=== PATIENT | female | born 1995 | race Caucasian/White ===

== ENCOUNTER 2016-09-04 23:27 | Emergency (ER) | payer OTHER ==
[~2016-09-04] VITALS: Ht 157.5 cm; Wt 68.8 kg
[2016-09-04 23:38] VITALS: TEMP 37; Ht 157.5 cm; Wt 68.8 kg
[2016-09-05] MEDS ORDERED: AMOXICILLIN 250 MG CAP PO ONE
[2016-09-05] MEDS ORDERED: AMOX500C3 PO (00:04)
--- NOTE | 2016-09-05 00:05 | EMERGENCY ROOM VISIT NOTE ---
ED Visit Note First contact with patient: 23:47 CHIEF COMPLAINT: Sore throat 4 days HISTORY OF PRESENT ILLNESS: Patient is an otherwise healthy 21-year-old white female who presents to the emergency department for evaluation of a sore throat over the last 4 days. She notes that it is primarily right sided. She denies any associated upper respiratory symptoms including sinus or nasal congestion, cough or ear pain. She subjectively felt febrile and had chills today but did not record her temperature with a thermometer. She has not used any oral medications for pain, and has tried sipping on herbal tea. She states that she looked in her throat today, and noticed greenish pass on the right tonsil. She notes a foul taste in her mouth and feels like her breath smells. She rates her discomfort a 2/10. No rash. Denies any posterior neck pain or stiffness. No difficulty breathing or swallowing. REVIEW OF SYSTEMS: Review of systems as per HPI. All other systems reviewed were negative. At least 6 systems reviewed. PMH: Electronic medical records are reviewed and summarized as above/below. See Problem List. SOCIAL HISTORY: Patient is a college student from [place]. She lives locally by herself. 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 Denies tobacco or alcohol use. PHYSICAL EXAM: Vital Signs: Reviewed Nurse's notes. Temperature 37.0C orally. MENTAL STATUS: Alert and cooperative. Nontoxic appearing. HEAD: Atraumatic, without temporal or scalp tenderness. EYES: PERRL, EOMI, no discharge or injection. EARS: Tympanic membranes intact, not inflamed, have normal contour. External canals clear. MOUTH: Mucous membranes moist, no lesions, tongue and gums appear normal. THROAT: Examination of the posterior pharynx show a superficial mucoid collection on the right tonsil centrally. Tonsils are otherwise slightly erythematous, no significant swelling. Uvula is midline. No exudates are appreciated on the left tonsil. No trismus. Airway is patent. NECK: Supple, nontender, no lymphadenopathy. SKIN: Normal. NEUROLOGICAL: Sensory and motor functions grossly intact. Normal gait. ED course: The patient was seen and evaluated as above. The area on the right tonsil was probed with a cotton-tipped applicator to see if it was a tonsil or stone which could be popped out of the crypt, however was fairly adherent to the tonsillar surface and therefore further manipulation was not performed. The patient was even to open fully, has no evidence for peritonsillar or retropharyngeal abscess at this time. Patient was encouraged to perform salt water gargles to manually irrigate over the area. She will be placed on amoxicillin. She was educated on the worrisome signs or symptoms for which she should return to the emergency department. She was advised to use Tylenol and ibuprofen for discomfort. She was discharged home in good condition. She was given her first dose of amoxicillin in the emergency department. Problem List Medical Problems: (1) Closed head injury Status: Resolved (2) Concussion Status: Resolved Surgical Problems: (1) H/O wisdom tooth extraction Status: Resolved Current/Historical Medications Scheduled Amoxicillin (Amoxil), 500 MG PO TID Allergies Coded Allergies: No Known Allergies (Unverified , 09/05/16) Vital Signs Date Time Temp Pulse Resp B/P Pulse Ox O2 Delivery O2 Flow Rate FiO2 09/05/16 00:07 98 18 129/67 98 Room Air 09/04/16 23:40 98 Room Air 09/04/16 23:38 37.0 82 16 128/75 97 Room Air Medications Administered Medications (Trade) Dose Ordered Sig/Gonzalez Route Start Time Stop Time Status Last Admin Dose Admin Amoxicillin (Amoxil Cap) 500 mg NOW ONCE PO 09/05/16 00:00 09/05/16 00:01 DC 09/05/16 00:06 500 MG Departure Information Impression Primary Impression: Tonsillar exudate Prescriptions Amoxicillin (AMOXIL) 500 Mg Cap 500 MG PO TID, #30 CAP Prov: Danitza Bess PA 09/05/16 Referrals No Doctor, Assigned (PCP) Patient Instructions My [facility] Additional Instructions Amoxicillin 500mg: Take one pill 3 times daily for 10 days for your throat infection. All antibiotics can cause diarrhea. If this occurs and you feel worse or it does not resolve in 1-2 days follow up with your doctor or return to the Emergency Department as this could be signs of serious underlying problems. Any medication can cause an allergic reaction, stop the pills immediately and return to the ER for rash, hives, breathing difficulties, or swelling. Acetaminophen(Tylenol) may be used for fever or pain. Use 1000mg every six hours as needed. Avoid using more than 3000mg in a 24 hour period. (AND/OR) Ibuprofen(Motrin, Advil) may be used for fever or pain. Use 600mg every six hours as needed. Take with food. Avoid using more than 2400mg in a 24 hour period. Do not use 2400mg per day for more than three consecutive days without physician direction. Prolonged inappropriate use can lead to stomach upset or ulcers. Rest and drink plenty of fluids. Controlling your fever with Tylenol and Ibuprofen as above will make you feel better. Saltwater gargles. Continue current medications. Return to the ER for worsening throat pain, severe headache, neck stiffness, difficulty breathing or swallowing, fevers, vomiting, worsening of your condition, or as needed. Follow up with your primary physician this week for a recheck of your current condition.
[2016-09-05 00:07] VITALS: BP 129/67; PULSE 98; O2SAT 98
== END 2016-09-05 00:10 | disposition home or self-care (01) ==
LOC: C.EDB 23:27 → C.EDA 09-05 00:10
DX: J03.90 Acute tonsillitis, unspecified (principal)